=== PATIENT | female | born 1975 | race Caucasian/White ===

== ENCOUNTER → 2018-02-10 16:18 | Outpatient (CLI) | payer BC, SELFPAY ==
[2018-02-10 17:51] LABS: Absolute Lymphocyte Count 2.91 X10^3/ul (0.83-4.51); Absolute Neutrophil Count 5.7 X10^3/uL (2.0-7.7); Basophil# 0.02 X10^3/uL; Basophil% 0.2 % (0-1); Eosinophil# 0.34 X10^3/uL; Eosinophils% 3.6 % (0-5); Hematocrit 40.3 % (37-47); Hemoglobin 13.5 g/dl (12.0-15.0); Lymphocyte # 2.91 X10^3/ul (4.0); Lymphocyte % 30.5 % (19-41); Mean Corp Hgb Conc 33.5 g/gl (32-36); Mean Corpuscular Hgb 30.9 pg (27.0-32.0); Mean Corpuscular Volume 92.2 fL (81-99); Mean Platelet Vol. 8.8 fl (6.2-12.0); Monocyte# 0.57 X10^3/uL; Neutrophil # 5.69 X10^3/uL (2.7-7.7); Neutrophil % 59.5 % (47-70); Platelet Count 395 K/mm3 (150-450); RBC Distribution Width CV 12.9 % (11.6-14.6); RBC Distribution Width SD 42.6 fl (35.1-43.9); Red Blood Count 4.37 M/mm3 (4.2-5.4); White Blood Count 9.6 K/mm3 (4.4-11.0)
[2018-02-10 17:54] LABS: POSITIVE COUNT NO; POSITIVE DIFFERENTIAL NO; POSITIVE MORPHOLOGY NO
[2018-02-10 18:09] LABS: Erythrocyte Sedimentation Rate 14 mm/hr (0-20)
[2018-02-10 19:25] LABS: ALB/GLOB Ratio 0.9 RATIO (0.9-2.4); AST(SGOT) 15 U/L (15-37); Alanine Aminotransfer ALT/SGPT 18 U/L (13-56); Albumin, Serum 3.5 g/dL (3.2-5.0); Alkaline Phosphatase 97 U/L (45-117); Anion Gap 8 (5-15); BUN 14 mg/dL (7-18); BUN/Creat Ratio 21.6 RATIO (10-20); Chloride 104 mmol/L (98-107); Creatinine, Serum 0.65 mg/dL (0.55-1.02); EST Glomerular Filtration Rate 107 mL/min (>60); Est Glom Filt Rate - Afr Amer 130 mL/min (>60); Estradiol 81.5 pg/mL; Follicle Stimulating Hormone 6.2 mIU/mL; Free T3 2.7 pg/mL (2.18-3.98); Glucose 86 mg/dL (74-106); Luteinizing Hormone 3.4 mIU/mL; Potassium 3.7 mmol/L (3.5-5.1); Protein, Total 7.5 g/dL (6.4-8.2); Sodium Level 136 mmol/L (136-145); T4 Free Direct 0.87 ng/dL (0.76-1.46); Thyroid Stim Hormone (TSH) 0.83 uIU/mL (0.358-3.74)
[2018-02-11 09:46] LABS: Vitamin D,25 Hydroxy 16.4 ng/mL (29.95-100.01)
[2018-02-12 08:31] LABS: DHEA Sulfate 197.3 ug/dL (57.3-279.2)
== END ==
PROVIDERS: Family Provider Family Medicine; PCP Family Medicine; Visit Provider Family Medicine
DX: L74.9 Eccrine sweat disorder, unspecified (principal)
CPT/HCPCS: 36415; 80053; 82306; 82627; 82670; 83001; 83002; 84403; 84439; 84443; 84481; 85025; 85652; 82626

== ENCOUNTER → 2018-06-06 09:39 | Outpatient (CLI) | payer BC, SELFPAY ==
--- NOTE | 2018-06-06 09:56 | RAD_ITS ---
STUDY: X-RAY - LEFT ELBOW REASON FOR EXAM: Female, 42 years old. Pain TECHNIQUE: 3 view(s) of the elbow. COMPARISON: None. FINDINGS: There is no evidence of fracture or dislocation. There are no significant degenerative changes. There are no radiodense foreign bodies. RAD/Elbow min 3 Views IMPRESSION: No fracture or dislocation. Electronically Signed: Shady Haro, at 16:53 EDT Tel , Service support ,
== END ==
PROVIDERS: Family Provider Family Medicine; PCP Family Medicine; Visit Provider Family Medicine
DX: M25.522 Pain in left elbow (principal)
CPT/HCPCS: 73080

== ENCOUNTER → 2019-07-20 07:24 | Outpatient (CLI) | payer OTHER, SELFPAY ==
[2019-07-20 10:45] LABS: ALB/GLOB Ratio 0.9 RATIO (0.9-2.4); AST(SGOT) 11 U/L (15-37); Alanine Aminotransfer ALT/SGPT 17 U/L (13-56); Albumin, Serum 3.6 g/dL (3.2-5.0); Alkaline Phosphatase 76 U/L (45-117); Anion Gap 6 (5-15); BUN 10 mg/dL (7-18); BUN/Creat Ratio 13.6 RATIO (10-20); Calcium,Total 8.5 mg/dL (8.5-10.1); Chloride 104 mmol/L (98-107); Cholesterol 173 mg/dL (200); Creatinine, Serum 0.74 mg/dL (0.55-1.02); EST Glomerular Filtration Rate 92 mL/min (>60); Est Glom Filt Rate - Afr Amer 111 mL/min (>60); Glucose 92 mg/dL (74-106); High Density Lipoprotein 73 mg/dL; Potassium 3.8 mmol/L (3.5-5.1); Protein, Total 7.6 g/dL (6.4-8.2); Sodium Level 137 mmol/L (136-145); Triglycerides 77 mg/dL; Very Low Density Lipoprotein 15 mg/dL (5-40)
[2019-07-20 12:03] LABS: Vitamin D,25 Hydroxy 23.7 ng/mL (29.95-100.01)
== END ==
PROVIDERS: Family Provider Family Medicine; PCP Family Medicine; Referring Provider Nurse Practitioner Family; Visit Provider Nurse Practitioner Family
DX: Z00.00 Encounter for general adult medical examination without abnormal findings (principal); E55.9 Vitamin D deficiency, unspecified
CPT/HCPCS: 36415; 80053; 80061; 82306

== ENCOUNTER → 2019-07-28 08:05 | Outpatient (CLI) | payer OTHER, SELFPAY ==
[2019-07-28 10:11] LABS: Potassium 4.6 mmol/L (3.5-5.1)
== END ==
PROVIDERS: Family Provider Family Medicine; PCP Family Medicine; Referring Provider Dermatology; Visit Provider Dermatology
DX: Z79.899 Other long term (current) drug therapy (principal); L70.0 Acne vulgaris; L21.8 Other seborrheic dermatitis; L71.0 Perioral dermatitis
CPT/HCPCS: 36415; 84132

== ENCOUNTER → 2020-01-10 07:52 | Outpatient (CLI) | payer OTHER, SELFPAY ==
[2020-01-10 10:06] LABS: Hematocrit 42.8 % (37-47); Mean Corp Hgb Conc 32.7 g/dL (32-36); Mean Corpuscular Hgb 30.9 pg (27.0-32.0); Mean Corpuscular Volume 94.5 fL (81-99); Mean Platelet Vol. 9.1 fl (6.2-12.0); Platelet Count 372 K/mm3 (150-450); RBC Distribution Width CV 13.2 % (11.6-14.6); RBC Distribution Width SD 45.9 fl (35.1-43.9); Red Blood Count 4.53 M/mm3 (4.2-5.4); White Blood Count 11.8 K/mm3 (4.4-11.0)
[2020-01-10 10:30] LABS: ALB/GLOB Ratio 1.1 RATIO (0.9-2.4); AST(SGOT) 29 U/L (15-37); Alanine Aminotransfer ALT/SGPT 21 U/L (13-56); Albumin, Serum 3.9 g/dL (3.2-5.0); Alkaline Phosphatase 68 U/L (45-117); Anion Gap 8 (5-15); BUN 12 mg/dL (7-18); Calcium,Total 8.5 mg/dL (8.5-10.1); Chloride 105 mmol/L (98-107); EST Glomerular Filtration Rate 83 mL/min (>60); Est Glom Filt Rate - Afr Amer 101 mL/min (>60); Globulin 3.6 g/dL (2.2-4.2); Glucose 117 mg/dL (74-106); Potassium 3.3 mmol/L (3.5-5.1); Protein, Total 7.5 g/dL (6.4-8.2); Sodium Level 138 mmol/L (136-145); Thyroid Stim Hormone (TSH) 0.89 uIU/mL (0.358-3.74)
== END ==
LOC: MTLAB 07:54
PROVIDERS: PCP Family Medicine; Referring Provider Nurse Practitioner Family; Visit Provider Nurse Practitioner Family
DX: R53.83 Other fatigue (principal)
CPT/HCPCS: 36415; 80053; 84443; 85027

== ENCOUNTER → 2020-01-30 15:03 | Outpatient (CLI) | payer OTHER, SELFPAY ==
[2020-01-30 18:05] LABS: Anion Gap 5 (5-15); BUN 18 mg/dL (7-18); BUN/Creat Ratio 25.8 RATIO (10-20); Calcium,Total 8.6 mg/dL (8.5-10.1); Chloride 103 mmol/L (98-107); EST Glomerular Filtration Rate 98 mL/min (>60); Est Glom Filt Rate - Afr Amer 118 mL/min (>60); Glucose 89 mg/dL (74-106); Potassium 3.7 mmol/L (3.5-5.1); Sodium Level 136 mmol/L (136-145)
== END ==
PROVIDERS: PCP Family Medicine; Referring Provider Family Medicine; Visit Provider Family Medicine
DX: E87.6 Hypokalemia (principal)
CPT/HCPCS: 36415; 80048

== ENCOUNTER → 2020-09-10 | Outpatient (CLI) | payer OTHER, SELFPAY | END | disposition home or self-care (01) | LOC: LABSPEC 17:01 | PROVIDERS: PCP Family Medicine; Referring Provider Family Medicine; Visit Provider Family Medicine | DX: U07.1 COVID-19 (principal) | CPT/HCPCS: 87635; U0003 ==

== ENCOUNTER 2021-11-28 07:32 | Outpatient (CLI) | payer OTHER, SELFPAY ==
[2021-11-28 10:12] LABS: Anion Gap 7 (5-15); BUN 13 mg/dL (7-18); BUN/Creat Ratio 16.6 RATIO (10-20); Calcium,Total 8.4 mg/dL (8.5-10.1); Chloride 106 mmol/L (98-107); Cholesterol 169 mg/dL (200); Creatinine, Serum 0.78 mg/dL (0.55-1.02); EST Glomerular Filtration Rate 85 mL/min (>60); Est Glom Filt Rate - Afr Amer 103 mL/min (>60); Glucose 89 mg/dL (74-106); High Density Lipoprotein 67 mg/dL; Potassium 4.1 mmol/L (3.5-5.1); Sodium Level 139 mmol/L (136-145); Thyroid Stim Hormone (TSH) 1.32 uIU/mL (0.358-3.74); Triglycerides 79 mg/dL; Very Low Density Lipoprotein 16 mg/dL (5-40)
== END 2021-11-28 23:59 | disposition short-term general hospital (02) ==
LOC: MTLAB 07:35
PROVIDERS: PCP Family Medicine; Referring Provider Family Medicine; Visit Provider Family Medicine
DX: Z13.1 Encounter for screening for diabetes mellitus (principal); Z13.220 Encounter for screening for lipoid disorders; Z13.29 Encounter for screening for other suspected endocrine disorder
CPT/HCPCS: 36415; 80048; 80061; 84443

== ENCOUNTER 2023-02-05 07:02 | Day surgery (SDC) | payer OTHER, SELFPAY ==
[2023-02-05 07:25] VITALS: BP 108/61; PULSE 76; RESP 16; TEMP 36.7; O2SAT 100; BMI 29.5
[2023-02-05] MEDS: Lactated Ringers 1,000 ML 15 ML IV (07:29)
--- NOTE | 2023-02-05 07:41 | HP.PCM_ITS ---
HPI - General HPI Narrative JAVIER COPPOLA, is a 47 F who presents for screening colonoscopy. She has never had a colonoscopy in the past. She denies abdominal pain or blood in the stool. No family history of colon cancer. [facility] Medical History (Updated 02/01/23 @ 14:51 by Migdalia King) Anxiety Easy bruising History of edema Low iron Migraine headache Non-smoker PONV (postoperative nausea and vomiting) Wears contact lenses Wears glasses Home Medications ascorbic acid (vitamin C) 500 mg tablet 500 mg PO DAILY 12/29/22 [History Last Taken Unknown] cholecalciferol (vitamin D3) 50 mcg (2,000 unit) capsule 50 mcg PO DAILY 0 12/29/22 [History Last Taken Unknown] mecobalamin (vitamin B12) 1,000 mcg chewable tablet 1,000 mcg PO DAILY 12/29/22 [History Last Taken Unknown] multivitamin 1 tab PO DAILY 12/29/22 [History Last Taken Unknown] semaglutide 0.25 mg or 0.5 mg (2 mg/3 mL) subcutaneous pen injector 0.25 mg subcut GARSIA WT LOSS 02/01/23 [History Last Taken Unknown] Allergy/AdvReac Type Severity Reaction Status Date / Time bupropion [From Contrave] Allergy Other Verified 02/05/23 07:23 naltrexone [From Contrave] Allergy Other Verified 02/05/23 07:23 Family History (Updated 12/29/22 @ 10:28 by Elsi Tapia) Father Diabetes CAD (coronary artery disease) Grandmother Lung cancer Surgical History (Updated 02/01/23 @ 14:43 by Migdalia King) History of breast augmentation History of endometrial ablation History of right oophorectomy Hx of tubal ligation Social History (Updated 12/29/22 @ 10:28 by Elsi Tapia) household members: spouse current occupational status: employed Smoking Status: Never smoker Past Medical/Surgical History Planned Operation Planned Operative Procedure/s: COLONOSCOPY Previous Hospitalizations/Surgeries HX Hospitalizations: No Any Problems With Anesthesia: No You/Your Family Experience Fever (Hyperthermia) With Anes: No Cholinesterase deficiency: No Cardiovascular Hx Hypertension: No Respiratory Hx Sleep Apnea: No Hx Respiratory Tract Infection/Cold (presently): No Do You Snore Loudly (louder than talking or can be heard): No Do You Often Feel Tired/ Fatigued/ Sleepy Dring Daytime?: No Has Anyone Observed You Stop Breathing During Sleep?: No Result (for STOP score): Negative Smoking Status: Never smoker Neurological Does patient have nerve stimulator: No Reproduction : No Miscellaneous Recent Exposure to Contagious Disease: No Allergies bupropion [From Contrave] Allergy (Verified 02/05/23 07:23) Other Headache naltrexone [From Contrave] Allergy (Verified 02/05/23 07:23) Other Headache Discharge Is Pt Admitted From a Jail, or a Detention: No Who Could Help: After D/C, Where Do you Plan to Go: Return Home Vital Signs Vital Signs Vital Signs: 02/05/23 07:25 02/05/23 07:25 Temperature 98.1 F Temperature Source Temporal Pulse Rate 76 Respiratory Rate 16 Respiratory Pattern Normal Blood Pressure 108/61 Blood Pressure Mean 76 Blood Pressure Source Monitor Blood Pressure Position Semi-Fowlers Blood Pressure Location Right Arm Pulse Ox 100 Oxygen Delivery Method Room Air Weight Weight: 171 lb 15.369 oz Body Mass Index (BMI) 29.5 Physical Exam Const alert and oriented x3 HEENT normocephalic Eyes PERRL Resp normal respiratory effort and normal air movement Cardio regular rate and regular rhythm GI soft to palpation, non-tender and non-distended Extremity normal to inspection Assessment & Plan Assessment/Plan (1) Encounter for screening for malignant neoplasm of colon: PLAN: I explained endoscopy in detail to the patient. I explained the risks including but not limited to stroke or heart attack with anesthesia, perforation of the GI tract, bleeding, infection. I explained that any of these could necessitate further emergency surgery. The patient understands and all questions were answered sufficiently. The patient wishes to proceed with procedure. Junior Leal MD Pager: [facility] [address] [place] [address], [address] [place] [address] Office: Surgery Risks - Colonoscopy Risks Include but are not Limited To: Risks include but are not limited to: Bleeding, perforation requiring further surgery, inability to complete colonoscopy requiring barium enema.
[2023-02-05 08:15] VITALS: BP 108/61; BP 87/50; PULSE 77; RESP 12; TEMP 36.4; O2SAT 98
--- NOTE | 2023-02-05 08:17 | OP.COLON_ITS ---
Patient Name: Margareth Pruitt Procedure Date: 02/05/2023 7:47 AM Date of : 1975 Age: 47 Procedure: Colonoscopy Indications: Screening for colorectal malignant neoplasm Providers: Junior Leal MD Referring MD: Nj Edwards Medicines: Monitored Anesthesia Care Patient Profile: This is a 47 year old female. Refer to note in patient chart for documentation of history and physical. Last Colonoscopy: none. The patient's first colonoscopy is today. Complications: No immediate complications. Procedure: Pre-Anesthesia Assessment: - Prior to the procedure, a History and Physical was performed, and patient medications and allergies were reviewed. The patient's tolerance of previous anesthesia was also reviewed. The risks and benefits of the procedure and the sedation options and risks were discussed with the patient. All questions were answered, and informed consent was obtained. Prior Anticoagulants: The patient has taken no previous anticoagulant or antiplatelet agents. After reviewing the risks and benefits, the patient was deemed in satisfactory condition to undergo the procedure. After I obtained informed consent, the scope was passed under direct vision. Throughout the procedure, the patient's blood pressure, pulse, and oxygen saturations were monitored continuously. The pediatric colonoscope was introduced through the anus and advanced to the cecum, identified by appendiceal orifice and ileocecal valve. The colonoscopy was performed without difficulty. The patient tolerated the procedure well. The quality of the bowel preparation was good. Scope In: 7:56:57 AM Scope Withdrawal Time 0 hours 4 minutes 35 seconds Scope Out: 8:10:07 AM Total Procedure Duration Time 0 hours 13 minutes 10 seconds Findings: The entire examined colon appeared normal on direct and retroflexion views. Impression: - The entire examined colon is normal on direct and retroflexion views. - No specimens collected. Recommendation: - Discharge patient to home. - Resume previous diet. - Continue present medications. - Repeat colonoscopy in 10 years for screening purposes. Procedure Code(s): --- Professional --- 57321, Colonoscopy, flexible; diagnostic, including collection of specimen(s) by brushing or washing, when performed (separate procedure) Diagnosis Code(s): --- Professional --- Z12.11, Encounter for screening for malignant neoplasm of colon CPT copyright 2017 [employer]. All rights reserved. The codes documented in this report are preliminary and upon boat crew deck hand review may be revised to meet current compliance requirements. Junior Leal MD 02/05/2023 8:16:37 AM This report has been signed electronically. Number of Addenda: 0 Note Initiated On: 02/05/2023 7:47 AM
--- NOTE | 2023-02-05 08:18 | OP.CCLET_ITS ---
02/05/2023 Nj Edwards [address] [place] [address] Re : Colonoscopy procedure for Margareth Newport Dear Dr. Edwards This procedure was performed on Sunday, February 05, 2023. My impressions and recommendations are as follows: Impressions : - The entire examined colon is normal on direct and retroflexion views. - No specimens collected. Recommendations : - Discharge patient to home. - Resume previous diet. - Continue present medications. - Repeat colonoscopy in 10 years for screening purposes. My findings are described in the full procedure note, which is enclosed. If I can be of further assistance, please feel free to contact me at Doctor phone number(s): , Work: . Sincerely, Junior Leal MD 02/05/2023 8:16:37 AM This report has been signed electronically.
[2023-02-05 08:20] VITALS: BP 108/61; BP 92/48; PULSE 73; RESP 18; O2SAT 100
[2023-02-05 08:25] VITALS: BP 100/54; BP 108/61; PULSE 78; RESP 18; O2SAT 100
[2023-02-05 08:30] VITALS: BP 108/61; BP 96/62; PULSE 78; RESP 18; TEMP 36.3; O2SAT 100
[2023-02-05 08:57] VITALS: BP 108/61
== END 2023-02-05 08:58 | disposition home or self-care (01) ==
LOC: EN 07:05 → AC 07:06
PROVIDERS: PCP Family Medicine; Referring Provider Family Medicine; Visit Provider Surgery
PROC: 0DJD8ZZ Inspection of Lower Intestinal Tract, Via Natural or Artificial Opening Endoscopic (ICD-10-PCS; CPT 45378; principal; 2023-02-05 07:55)
DX: Z12.11 Encounter for screening for malignant neoplasm of colon (principal)
CPT/HCPCS: 45378; J7120; J2405

== ENCOUNTER → 2023-12-30 | Outpatient (CLI) | payer OTHER, SELFPAY ==
[2023-12-30 12:59] LABS: Vitamin D,25 Hydroxy 45.5 ng/mL
[2023-12-30 13:26] LABS: Anion Gap 2 (5-15); BUN 11 mg/dL (7-18); Chloride 107 mmol/L (98-107); Cholesterol 174 mg/dL (200); Creatinine, Serum 0.78 mg/dL (0.55-1.02); EST Glomerular Filtration Rate 84 mL/min (>60); Est Glom Filt Rate - Afr Amer 101 mL/min (>60); Glucose 86 mg/dL (74-106); High Density Lipoprotein 68 mg/dL; Potassium 4.1 mmol/L (3.5-5.1); Sodium Level 136 mmol/L (136-145); Triglycerides 64 mg/dL; Very Low Density Lipoprotein 13 mg/dL (5-40)
== END | disposition home or self-care (01) ==
LOC: MFPLAB 09:58
PROVIDERS: PCP Family Medicine; Visit Provider Family Medicine
DX: Z13.220 Encounter for screening for lipoid disorders (principal); R79.89 Other specified abnormal findings of blood chemistry; Z13.1 Encounter for screening for diabetes mellitus; Z13.29 Encounter for screening for other suspected endocrine disorder
CPT/HCPCS: 36415; 80048; 80061; 82306; 84443

== ENCOUNTER → 2025-01-30 | Outpatient (CLI) | payer OTHER, SELFPAY ==
[2025-01-30 10:40] LABS: Hematocrit 41.3 % (37-47); Hemoglobin 13.8 g/dL (12.0-15.0); Mean Corp Hgb Conc 33.4 g/dL (32-36); Mean Corpuscular Hgb 30.9 pg (27.0-32.0); Mean Corpuscular Volume 92.6 fL (81-99); Mean Platelet Vol. 8.6 fl (6.2-12.0); Platelet Count 357 K/mm3 (150-450); RBC Distribution Width CV 12.3 % (11.6-14.6); RBC Distribution Width SD 41.9 fl (35.1-43.9); Red Blood Count 4.46 M/mm3 (4.2-5.4); White Blood Count 6.1 K/mm3 (4.4-11.0)
[2025-01-30 13:15] LABS: Anion Gap 10 (5-15); BUN 9 mg/dL (4-19); Calcium,Total 8.5 mg/dL (7.6-11.0); Carbon Dioxide 24.3 mmol/L (21.0-32.0); Chloride 104 mmol/L (98-108); Creatinine, Serum 0.82 mg/dL (0.70-1.20); EST Glomerular Filtration Rate 89 (>60); Ferritin 165 ng/mL (22-378); Glucose 84 mg/dL (70-99); Iron 118 ug/dL (50-170); Potassium 4.7 mmol/L (3.3-5.1); Sodium Level 139 mmol/L (133-145)
== END | disposition home or self-care (01) ==
LOC: MTLAB 08:43
PROVIDERS: PCP Family Medicine; Referring Provider Family Medicine; Visit Provider Family Medicine
DX: R53.83 Other fatigue (principal)
CPT/HCPCS: 36415; 80048; 82306; 82728; 83540; 84443; 85027

== ENCOUNTER → 2025-10-19 | Outpatient (CLI) | payer OTHER, SELFPAY ==
[2025-10-19 15:21] LABS: Hematocrit 41.7 % (37-47); Hemoglobin 13.7 g/dL (12.0-15.0); Immature Granulocytes Count 0.020 X10^3/uL (0.0-0.0); Mean Corp Hgb Conc 32.9 g/dL (32-36); Mean Corpuscular Volume 94.6 fL (81-99); Mean Platelet Vol. 9.0 fl (6.2-12.0); NRBC Flagged by Analyzer 0 % (0-5); Platelet Count 391 K/mm3 (150-450); RBC Distribution Width CV 12.8 % (11.6-14.6); RBC Distribution Width SD 45.0 fl (35.1-43.9); Red Blood Count 4.41 M/mm3 (4.2-5.4); White Blood Count 8.5 K/mm3 (4.4-11.0)
[2025-10-19 15:35] LABS: AST(SGOT) 16 U/L (<=31); Alanine Aminotransfer ALT/SGPT 9 U/L (<=34); Albumin, Serum 4.3 g/dL (3.5-5.0); Alkaline Phosphatase 56 U/L (35-104); Amylase 55 U/L (28-100); Anion Gap 12 (5-15); BUN 10 mg/dL (4-19); BUN/Creat Ratio 14.2 RATIO (10-20); Calcium,Total 8.8 mg/dL (7.6-11.0); Carbon Dioxide 24.6 mmol/L (21.0-32.0); Chloride 102 mmol/L (98-108); Globulin 2.7 g/dL (2.2-4.2); Glucose 75 mg/dL (70-99); Lipase 24 U/L (13-75); Potassium 3.5 mmol/L (3.3-5.1)
== END | disposition home or self-care (01) ==
LOC: MTLAB 12:36
PROVIDERS: PCP Family Medicine; Referring Provider Family Medicine; Visit Provider Family Medicine
DX: R10.9 Unspecified abdominal pain (principal)
CPT/HCPCS: 36415; 80053; 82150; 83690; 85025; 85652

== ENCOUNTER → 2025-10-29 | Outpatient (CLI) | payer OTHER, SELFPAY ==
--- NOTE | 2025-10-29 09:02 | US_ITS ---
PROCEDURE: ABDOMEN LIMITED 10/29/2025 REASON FOR EXAM: ABDOMINAL PAIN TECHNIQUE: Procedure Code: USABDL Modality: US Procedure: ABDOMEN LIMITED FINDINGS: Liver measures 14.5 cm in greatest dimension with normal echogenicity. No intrahepatic or extrahepatic biliary ductal dilation. No mass or cyst. Normal hepatopetal flow in the portal vein. Normal flow in the hepatic artery. Gallbladder nontender in thin-walled measuring 7 mm in greatest dimension. Polyps measuring 4 mm, 4 mm, and 3 mm respectively. No definite pancreatic abnormality. Right kidney measures 11.9 x 5.5 x 3.4 cm. No cyst, mass, calculus, hydronephrosis, or cortical thinning. US/Abdomen Limited IMPRESSION: Small nontender gallbladder polyps. Otherwise unremarkable. Reading [facility]
== END | disposition home or self-care (01) ==
PROVIDERS: PCP Family Medicine; Referring Provider Family Medicine; Visit Provider Family Medicine
DX: R10.11 Right upper quadrant pain (principal)
CPT/HCPCS: 76705